=== PATIENT | male | born 1935 | race Caucasian/White ===

== ENCOUNTER → 2017-09-17 | Day surgery (SDC) | payer OTHER ==
[~2017-09-17] VITALS: Ht 182.9 cm; Wt 77.1 kg
--- NOTE | 2017-09-17 08:53 | Operative Report ---
Operative/Inv Procedure Report Surgery Date: 09/17/17 Name of Procedure: Cataract extraction lens implantation insertion of glaucoma drainage device right eye Pre-Operative Diagnosis: Age-related cataract and poorly controlled moderate glaucoma right eye 20/25 vision 20/70 glare vision Post-Operative Diagnosis: Same Estimated Blood Loss: none Surgeon/Hot Top Liner: Arya Moseley MD Anesthesia: local monitored anesthesi Complications: None Operative/Procedure Note Note: The patient was brought to the operating room standard monitoring equipment was attached the patient was prepped and draped in the usual fashion for intraocular surgery. A lid speculum was placed to retract the lids. The case was begun by making 1 partial-thickness corneal relaxing incision at 55. A temporal incision with a 2.4 mm keratome. The eye was stabilized with a Sanon ring during this incision. 1 mL of non-preserved lidocaine was introduced into the anterior chamber to provide anesthesia. The anterior chamber was then filled and deepened with viscoelastic. A curvilinear capsulorrhexis was achieved using a 30-gauge needle and is a cystotome and capsulorrhexis was finished using a Utrata forceps. A second or paracentesis incision was made temporally with a 1 mm MVR blade. The lens was then hydrodissected with balanced salt solution and found to be rotatable. The lens was emulsified using phacoemulsification and a modified four-quadrant cracking technique. The residual cortical material was removed using automated irrigation and aspiration and as much of the anterior capsular rim was cleaned as well as possible. The posterior capsule was cleaned first with the automated machine on a low setting and then manually with a Trell squeegee. The capsular bag was deepened with viscoelastic. The lens a Technis 1 19.5 Diopter placed into the bag under direct visualization and rotated so that the haptics were at 12 and 6:00. The nasal angle was then reanesthetized using intracameral lidocaine. Viscoelastic was used to deepen the nasal angle as well as the anterior chamber and the patient's head was rotated approximately 30 degrees away from the surgeon. Microscope was rotated approximately 30 towards the surgeon and the top of the cornea was lubricated using viscoelastic. Intraoperative gonioprism was then placed on the eye and the angle visualized. A landing spot for the Cypass device was identified and the device was removed from its packaging and introduced into the anterior chamber. The device was then seated in the proximal position below the scleral spur and above the iris root. It was tapped into position so that one or 2 rings were visible on top of the iris. The patient's head was returned to its original position as was the microscope. Viscoelastic was then removed from the eye by flushing it out and then by automated irrigation and aspiration. The eye was pressurized to a normal tone. 1/10 of a cc of vancomycin solution was introduced into the anterior chamber to provide antibiotic prophylaxis. The wounds were sealed by hydrating the stroma adjacent to them and the eye was left at a proper tone after the wounds were checked and found not to be leaking. The lid speculum was removed from the orbit. Antibiotic and steroid drops were placed on the eye and then the eye was shielded. Monitoring equipment was removed from the patient and the patient was removed from the operative suite to the holding area. The patient tolerated the procedure well and will be seen in the office tomorrow.
== END ==
LOC: STS 03:04
DX: H40.1112 Primary open-angle glaucoma, right eye, moderate stage (principal); H25.89 Other age-related cataract; E11.9 Type 2 diabetes mellitus without complications
CPT/HCPCS: 0474T; 66984; 93005; 93010; C1783; J2250; V2632